=== PATIENT | male | born 1965 | race Caucasian/White ===

== ENCOUNTER 2018-09-28 13:57 | Emergency (ER) | payer OTHER ==
[2018-09-28 14:09] VITALS: BP 126/85; PULSE 88; TEMP 98.9; BMI 27.6
[2018-09-28] MEDS ORDERED: KETOROLAC TROMETHAMINE 60 MG/2 ML VIAL IM ONE (14:10)
--- NOTE | 2018-09-28 14:10 | PDOC ---
Rapid Medical Evaluation Time Seen by Provider: 09/28/18 14:07 Medical Evaluation: Allergies Allergy/AdvReac Type Severity Reaction Status Date / Time No Known Allergies Allergy Verified 10/15/17 20:50 09/28/18 14:07 I have performed a brief in-person evaluation of this patient. The patient presents with a chief complaint of: lower back pain Pertinent physical exam findings: palpable muscle spasm to lumbar paraspinous muscles I have ordered the following: toradol The patient will proceed to the ED for further evaluation. Discharge Disposition - Diagnosis Back pain - Referrals - Patient Instructions - Post Discharge Activity
[2018-09-28] MEDS ORDERED: KETOROLAC TROMETHAMINE 60 MG/2 ML VIAL ONE (14:20)
--- NOTE | 2018-09-28 14:29 | PDOC ---
History of Present Illness - General Chief Complaint: Back Pain Stated Complaint: LOWER BACK PAIN Time Seen by Provider: 09/28/18 14:07 - History of Present Illness Initial Comments: 09/28/18 14:26 53-year-old male without comorbidities presents for evaluation of lower back pain. 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 He has ongoing back issues long-standing. He has no radicular symptoms loss of bowel bladder function or saddle paresthesias Past History - Past Medical History Allergies/Adverse Reactions: Allergies Allergy/AdvReac Type Severity Reaction Status Date / Time No Known Allergies Allergy Verified 10/15/17 20:50 Home Medications: Ambulatory Orders NK [No Known Home Medication] 09/28/18 HTN: Yes - Immunization History Td Vaccination: Yes TDAP Vaccination: Yes Immunization Up to Date: Yes - Suicide/Smoking/Psychosocial Hx Smoking Status: No Smoking History: Never smoked Have you smoked in the past 12 months: No Number of Cigarettes Smoked Daily: 0 Hx Alcohol Use: No Drug/Substance Use Hx: No Substance Use Type: None Review of Systems - Review of Systems Musculoskeletal: Yes: Back Pain *Physical Exam - Vital Signs Last Vital Signs Temp Pulse Resp BP Pulse Ox 98.9 F 88 18 126/85 98 09/28/18 14:06 09/28/18 14:06 09/28/18 14:06 09/28/18 14:06 09/28/18 14:06 - Physical Exam Comments: 09/28/18 14:27 Lumbar spine skin color and temperature are normal range of motion is slightly limited. There is no midline tenderness. Moderate paralumbar musculature spasm and tenderness. 5 out of 5 strength in bilateral lower extremities without gross sensorimotor deficits. Negative straight leg raise test bilaterally thighs and calves are soft and nontender. He is neurovascularly intact. ED Treatment Course - Medications Given in the ED: ED Medications Discontinued Medications Generic Name Dose Route Start Last Admin Trade Name Freq PRN Reason Stop Dose Admin Ketorolac Tromethamine 60 mg 09/28/18 14:10 09/28/18 14:24 Toradol Injection - IM 09/28/18 14:11 60 mg ONCE ONE Administration Medical Decision Making - Medical Decision Making 09/28/18 14:27 Patient has Flexeril and Motrin at home which she takes from time to time I've advised mom the use of these medications. He was given a shot of Toradol in the emergency room. I've advised him no anti-inflammatories for the remainder of the day he may resume the Motrin tomorrow. Follow-up with his pain management doctor as scheduled. *DC/Admit/Observation/Transfer Diagnosis at time of Disposition: Back pain, Low back strain - Discharge Dispostion Disposition: HOME Condition at time of disposition: Stable Decision to Admit order: No - Referrals Referrals: Rahat Miller MD [Primary Care Provider] - - Patient Instructions Printed Discharge Instructions: Low Back Pain, DI for Low Back Pain Additional Instructions: He may resume the Flexeril this evening and resume the Motrin tomorrow. Return to the emergency room for worsening symptoms and follow-up with your pain management doctor as scheduled. - Post Discharge Activity Forms/Work/School Notes: Back to Work
== END 2018-09-28 14:31 | disposition home or self-care (01) ==
LOC: JERFT 13:57
PROC: 3E0233Z Introduction of Anti-inflammatory into Muscle, Percutaneous Approach (ICD-10-PCS; principal; 2018-09-28)
DX: S39.012A Strain of muscle, fascia and tendon of lower back, initial encounter (principal); X50.0XXA Overexertion from strenuous movement or load, initial encounter; Y93.89 Activity, other specified; Y92.89 Other specified places as the place of occurrence of the external cause; Y99.0 Civilian activity done for income or pay
CPT/HCPCS: 99281-25